=== PATIENT | male | born 2000 | race Two or more races ===

== ENCOUNTER 2020-04-20 09:59 | Emergency (ER) | payer OTHER ==
--- NOTE | 2020-04-20 10:08 | EDM.PDOC ---
ED HPI GENERAL MEDICAL PROBLEM - General Chief Complaint: Eye Problems Stated Complaint: LEFT EYE SWOLLEN Time Seen by Provider: 04/20/20 10:08 Source of Information: Reports: Patient, RN, RN Notes Reviewed History Limitations: Reports: No Limitations - History of Present Illness INITIAL COMMENTS - FREE TEXT/NARRATIVE: Pt not sure if something got in the left eye yesterday, but woke with swelling and a painful itching of the upper left eyelid with some drainage. Denies visual change, headache, fever, or injury. Onset: Gradual Onset Date: 04/19/20 Duration: Constant Quality: Reports: Ache Severity: Moderate Improves with: Reports: None Worsens with: Reports: None Associated Symptoms: Reports: No Other Symptoms Left Eye Pain Score (Numeric/FACES): 1 Past Medical History - Past Health History Medical/Surgical History: Denies Medical/Surgical History Social & Family History - Family History Family Medical History: No Pertinent Family History - Living Situation & Occupation Occupation: Student ED ROS GENERAL - Review of Systems Review Of Systems: Comprehensive ROS is negative, except as noted in HPI. ED EXAM GENERAL W FULL EYE - Physical Exam Exam: See Below Exam Limited By: No Limitations General Appearance: Alert, WD/WN, No Apparent Distress Eye Exam: Right Eye: Normal Inspection, Left Eye: Conjunctival Injection, Bilateral Eye: EOMI, PERRL Eyelids: Right: Normal Appearance, Left: Stye (with purulent drainage) Conjunctiva & Sclera: Bilateral: Normal Appearance Cornea Exam: Left: Normal Appearance Extraocular Movements: Bilateral: Intact Pupils: Normal Accommodation Pupillary Size: Bilateral: 4 mm Pupillary Reaction: Bilateral: Brisk Ears: Normal External Exam Nose: Normal Inspection, Normal Mucosa, No Blood Throat/Mouth: Normal Inspection Head: Atraumatic, Normocephalic Neck: Normal Inspection Respiratory/Chest: No Respiratory Distress Neurological: Alert, Oriented, No Motor/Sensory Deficits Psychiatric: Normal Mood Skin Exam: Warm, Dry, Intact, Normal Color, No Rash Course - Vital Signs Last Recorded V/S: Last Vital Signs Temp 98.1 F 04/20/20 10:07 Pulse 89 04/20/20 10:07 Resp 16 04/20/20 10:07 BP 142/87 H 04/20/20 10:07 Pulse Ox 99 04/20/20 10:07 Departure - Departure Time of Disposition: 10:41 Disposition: Home, Self-Care 01 Condition: Good Clinical Impression: Hordeolum internum left upper eyelid - Discharge Information *PRESCRIPTION DRUG MONITORING PROGRAM REVIEWED*: Not Applicable *COPY OF PRESCRIPTION DRUG MONITORING REPORT IN PATIENT KAYLA: Not Applicable Instructions: Stye Forms: ED Department Discharge Additional Instructions: Rx: Cephalexin 500mg Gentamicin Ophthalmic Solution 0.3% Use one drop in left eye four times a day for five days. Moist hot pack (clean hot wet washcloth) to left eye several times a day today and tomorrow. Follow up in clinic if not improving in 3 days. Sepsis Event Note (ED) - Focused Exam Vital Signs: Vital Signs Temp Pulse Resp BP Pulse Ox 04/20/20 10:07 98.1 F 89 16 142/87 H 99
[2020-04-20] MEDS ORDERED: Gentamicin 0.3% Ophth Soln 5 ML Bottle EYELF ONE (10:31)
== END 2020-04-20 10:50 | disposition home or self-care (01) ==
LOC: DL.ED 09:59
DX: H00.024 Hordeolum internum left upper eyelid (principal)
CPT/HCPCS: 99282; A9270